=== PATIENT | female | born 1990 | race Caucasian/White ===

== ENCOUNTER 2023-07-25 00:29 | Emergency (ER) | payer SELFPAY ==
[~2023-07-25] VITALS: Ht 162.6 cm; Wt 65.0 kg
[2023-07-25 00:35] VITALS: BP 109/73; PULSE 88; RESP 16; TEMP 97.9; O2SAT 99
== END 2023-07-25 01:28 | disposition home or self-care (01) ==
LOC: ER 00:41
DX: F10.129 Alcohol abuse with intoxication, unspecified (principal); F19.90 Other psychoactive substance use, unspecified, uncomplicated; Y90.9 Presence of alcohol in blood, level not specified
CPT/HCPCS: 99283